=== PATIENT | male | born 1995 | race Caucasian/White ===

== ENCOUNTER 2021-03-23 22:00 | Emergency (ER) | payer BC, OTHER ==
[2021-03-23 22:06] VITALS: BP 120/75; PULSE 87; RESP 20; TEMP 98.1
[2021-03-23] MEDS ORDERED: IBUPROFEN 600 MG TAB PO STA (22:33)
--- NOTE | 2021-03-23 22:46 | XR ---
EXAMINATION TYPE: XR ankle complete RT DATE OF EXAM: 03/23/2021 COMPARISON: 04/25/2016 HISTORY: Ankle pain TECHNIQUE: 3 views FINDINGS: Ankle mortise is anatomic. There is soft tissue swelling over the lateral malleolus. I see no fracture. IMPRESSION: Soft tissue swelling. No fracture.
--- NOTE | 2021-03-23 22:52 | ED ---
Lower Extremity Injury HPI - General Chief Complaint: Extremity Injury, Lower Stated Complaint: Right ankle pain Time Seen by Provider: 03/23/21 22:21 Source: patient Mode of arrival: wheelchair Limitations: no limitations - History of Present Illness Initial Comments: Patient is a 25-year-old male presenting to the emergency Department with complaints of right ankle pain happened few hours prior to arrival. Patient states he was walking down his deck steps when he missed the last one, and twisted his right ankle. He states is painful on the lateral aspect. He is able to bear just little weight. He denies any pain of his right knee, he has no other injuries from this twice. He has no further complaints. He denies any previous injuries to his right ankle or foot. - Related Data Previous Rx's Medication Instructions Recorded Ibuprofen [Motrin] 600 mg PO Q6HR PRN #40 day 04/25/16 Allergies Allergy/AdvReac Type Severity Reaction Status Date / Time No Known Allergies Allergy Verified 04/25/16 13:37 Review of Systems ROS Statement: Those systems with pertinent positive or pertinent negative responses have been documented in the HPI. ROS Other: All systems not noted in ROS Statement are negative. Past Medical History Past Medical History: No Reported History History of Any Multi-Drug Resistant Organisms: None Reported Past Surgical History: Ear Surgery Past Psychological History: No Psychological Hx Reported Smoking Status: Never smoker Past Alcohol Use History: None Reported Past Drug Use History: None Reported General Exam - General Exam Comments Initial Comments: GENERAL: Patient is well-developed and well-nourished. Patient is nontoxic and in no acute distress. HEAD: Atraumatic, normocephalic. EYES: Pupils equal round and reactive to light, extraocular movements intact, sclera anicteric, conjunctiva are normal. Eyelids were unremarkable. ENT: TMs normal, nares patent, oropharynx clear without exudates. Moist mucous membranes. NECK: Normal range of motion, supple without lymphadenopathy or JVD. LUNGS: Unlabored respirations. Breath sounds clear to auscultation bilaterally and equal. No wheezes rales or rhonchi. HEART: Regular rate and rhythm without murmurs, rubs or gallops. ABDOMEN: Soft, nontender, normoactive bowel sounds. No guarding, no rebound. No masses appreciated. : Deferred MUSCULOSKELETAL: Patient has pain with palpation of the right lateral malleolus, he does have some mild swelling present, no pain of the right foot, lower leg or right knee. He is neurovascular intact. No clubbing or cyanosis. NEUROLOGICAL: Patient is alert and oriented x 3. Motor and sensory are also intact. Cranial nerves II through XII grossly intact. Symmetrical smile. Normal speech, normal gait. PSYCH: Normal mood, normal affect. SKIN: Warm, Dry, normal turgor, no rashes or lesions noted. Limitations: no limitations Course Vital Signs 03/23/21 22:03 Temperature 98.1 F Pulse Rate 87 Respiratory 20 Rate Blood Pressure 120/75 O2 Sat by Pulse 96 Oximetry Procedures - Orthopedic Splinting/Casting Injury #1 Side: right Lower Extremity Injury Location: ankle Lower Extremity Immobilizer: stirrup splint, Kurt wrap Medical Decision Making - Medical Decision Making patient is a 25-year-old male here with right ankle pain after he twisted it stepping off his deck. X-rays reveal no acute fracture dislocations. I did give him an air cast splint and put an Kurt wrap on him. Recommended ice, Motrin for discomfort. He can follow up with his doctor if symptoms persist. He is agreeable to this and he is stable for discharge. Disposition Clinical Impression: Right ankle sprain Disposition: HOME SELF-CARE Condition: Stable Instructions (If sedation given, give patient instructions): Ankle Sprain (ED) Additional Instructions: Please return to the Emergency Department if symptoms worsen or any other concerns. May use air cast for support. Recommended ice to the area, ibuprofen for any discomfort. If symptoms persist without improvement after 1-2 weeks, follow up with orthope dics. Is patient prescribed a controlled substance at d/c from ED?: No Referrals: Beto Haddad MD [Primary Care Provider] - 1-2 days Mikel Robles MD [STAFF PHYSICIAN] - 1-2 days Time of Disposition: 22:52
== END 2021-03-23 23:19 | disposition home or self-care (01) ==
LOC: EC 22:00
DX: S93.401A Sprain of unspecified ligament of right ankle, initial encounter (principal); X50.0XXA Overexertion from strenuous movement or load, initial encounter
CPT/HCPCS: 99283

== ENCOUNTER 2022-01-06 04:37 | Emergency (ER) | payer BC, OTHER ==
[2022-01-06] MEDS ORDERED: SODIUM CHLORIDE 0.9% 1,000 ML IV STA (04:44)
--- NOTE | 2022-01-06 04:45 | ED ---
Chest Pain HPI - General Stated Complaint: Chest Pain Time Seen by Provider: 01/06/22 04:44 Source: RN notes reviewed, old records reviewed Limitations: no limitations - History of Present Illness Initial Comments: This is a 26-year-old male to the emergency department for evaluation patient is chest pain significant chest pain left-sided chest pain radiating to his back severe. Patient did have syncopal event at work prior to arrival. Very sweaty very diaphoretic. very weak went to his knee positive nausea following vomiting. Severe shortness of breath no medical history takes no medications no other new complaints MD Complaint: chest pain -: minutes(s) Onset: during rest, during exertion Pain Location: substernal, left chest Pain Radiation: LUE Severity: moderate Severity scale (1-10): 6 Quality: aching Consistency: constant Improves With: nothing Worsens With: nothing Anginal Symptoms: nausea, dyspnea Other Symptoms: palpitations Treatments Prior to Arrival: none - Related Data Previous Rx's Medication Instructions Recorded Ibuprofen [Motrin] 600 mg PO Q6HR PRN #40 day 04/25/16 Allergies Allergy/AdvReac Type Severity Reaction Status Date / Time No Known Allergies Allergy Verified 01/06/22 05:03 Review of Systems ROS Statement: Those systems with pertinent positive or pertinent negative responses have been documented in the HPI. ROS Other: All systems not noted in ROS Statement are negative. EKG Findings - EKG Comments: EKG Findings:: EKG is sinus bradycardia [place] 136 QRS 97 QTc 4:15 Past Medical History Past Medical History: No Reported History History of Any Multi-Drug Resistant Organisms: None Reported Past Surgical History: Ear Surgery Past Psychological History: No Psychological Hx Reported Smoking Status: Never smoker Past Alcohol Use History: None Reported Past Drug Use History: None Reported General Exam General appearance: alert, in no apparent distress, anxious Head exam: Present: atraumatic, normocephalic, normal inspection Eye exam: Present: normal appearance, PERRL, EOMI. Absent: scleral icterus, conjunctival injection, periorbital swelling ENT exam: Present: normal exam, mucous membranes moist Neck exam: Present: normal inspection. Absent: tenderness, meningismus, lymphadenopathy Respiratory exam: Present: normal lung sounds bilaterally. Absent: respiratory distress, wheezes, rales, rhonchi, stridor Cardiovascular Exam: Present: regular rate, normal rhythm, normal heart sounds. Absent: systolic murmur, diastolic murmur, rubs, gallop, clicks GI/Abdominal exam: Present: soft, normal bowel sounds. Absent: distended, tenderness, guarding, rebound, rigid Extremities exam: Present: normal inspection, full ROM, normal capillary refill. Absent: tenderness, pedal edema, joint swelling, calf tenderness Back exam: Present: normal inspection Neurological exam: Present: alert, oriented X3, CN II-XII intact Psychiatric exam: Present: normal affect, normal mood Skin exam: Present: warm, dry, intact, normal color. Absent: rash Course Vital Signs 01/06/22 01/06/22 01/06/22 04:56 06:03 07:54 Temperature 97.9 F Pulse Rate 74 81 82 Respiratory 18 18 17 Rate Blood Pressure 127/78 128/79 126/78 O2 Sat by Pulse 98 100 98 Oximetry - Reevaluation(s) Reevaluation #1: 01/06/22 Medical record is reviewed Reevaluation #2: 01/06/22 Patient informed of results and questions answered Reevaluation #3: 01/06/22 Patient feels okay for discharge Chest Pain MDM - MDM 26 male to the emergency department for evaluation of chest pain severe with syncopal event. CT negative for significant acute disease and including PE. EKG troponin negative patient can be discharged home Disposition Clinical Impression: Chest pain, Atypical chest pain, Near syncope Disposition: HOME SELF-CARE Condition: Good Instructions (If sedation given, give patient instructions): Chest Pain (ED), Near Syncope (ED) Is patient prescribed a controlled substance at d/c from ED?: No Referrals: Beto Haddad MD [Primary Care Provider] - 1-2 days Time of Disposition: 06:45
[2022-01-06 05:03] VITALS: TEMP 97.9
[2022-01-06 05:32] LABS: Basophils # (A) 0.1 k/uL (0-0.2); Basophils % (A) 1 %; Eosinophils # (A) 0.1 k/uL (0-0.7); Eosinophils % (A) 1 %; HCT 46.6 % (39.0-53.0); HGB 15.6 gm/dL (13.0-17.5); Lymphocytes # (A) 1.5 k/uL (1.0-4.8); Lymphocytes % (A) 19 %; MCH 28.1 pg (25.0-35.0); MCHC 33.4 g/dL (31.0-37.0); MCV 84.1 fL (80.0-100.0); Monocytes # (A) 0.4 k/uL (0-1.0); Monocytes % (A) 5 %; Neutrophils # (A) 5.7 k/uL (1.3-7.7); Neutrophils % (A) 72 %; Platelet Count 241 k/uL (150-450); RBC 5.54 m/uL (4.30-5.90); RDW 12.3 % (11.5-15.5); WBC 7.8 k/uL (3.8-10.6)
--- NOTE | 2022-01-06 05:32 | XR ---
EXAMINATION TYPE: XR chest 1V portable DATE OF EXAM: 01/06/2022 COMPARISON: NONE HISTORY: Chest pain. TECHNIQUE: Single AP portable frontal upright view of the chest is obtained. FINDINGS: Overlying EKG leads are present. There is no focal air space opacity, pleural effusion, or pneumothorax seen. The cardiac silhouette size is within normal limits. The osseous structures are intact. IMPRESSION: No acute process.
[2022-01-06 05:44] LABS: ALT 29 U/L (4-49); AST 40 U/L (17-59); African American GFR (CKD) >90 (>60 ml/min/1.73 sqM); Albumin 4.7 g/dL (3.5-5.0); Alkaline Phosphatase 79 U/L (38-126); Anion Gap 7 mmol/L; Blood Urea Nitrogen 20 mg/dL (9-20); Calcium 9.2 mg/dL (8.4-10.2); Carbon Dioxide 27 mmol/L (22-30); Chloride 102 mmol/L (98-107); Glucose 104 mg/dL (74-99); Lipase 81 U/L (23-300); Magnesium 1.9 mg/dL (1.6-2.3); Non-African American GFR(CKD) >90 (>60 ml/min/1.73 sqM); Sodium 136 mmol/L (137-145); Total Bilirubin 1.1 mg/dL (0.2-1.3); Total Protein 7.1 g/dL (6.3-8.2)
[2022-01-06 06:18] LABS: Potassium 4.5 mmol/L (3.5-5.1)
--- NOTE | 2022-01-06 06:20 | CT ---
EXAMINATION TYPE: CT angio chest DATE OF EXAM: 01/06/2022 COMPARISON: Chest x-ray earlier today. HISTORY: chest pain CT DLP: 810.8 mGycm. Automated Exposure Control for Dose Reduction was Utilized. CONTRAST: CTA scan of the thorax is performed with IV Contrast, patient injected with 83 mL of Isovue 370, pulm onary embolism protocol. MIP Images are created on CT scanner and reviewed. FINDINGS: LUNGS: The lungs are grossly clear, there is no concerning parenchymal mass or nodule identified. T here is no pleural effusion or pneumothorax seen. The tracheobronchial tree is patent. MEDIASTINUM: There is suboptimal study with denser contrast in the aorta versus pulmonary arteries. There is no convincing CT evidence for acute pulmonary embolism. No thoracic aortic dissection or ane urysm. There are no greater than 1 cm hilar or mediastinal lymph nodes. No cardiomegaly or pericard ial effusion is seen. OTHER: No additional significant abnormality is seen. IMPRESSION: No CT evidence for acute pulmonary embolism. No suspicious acute pulmonary process.
[2022-01-06 06:35] LABS: Partial Thromboplastin Time 25.2 sec (22.0-30.0)
[2022-01-06 07:56] VITALS: BP 126/78; PULSE 82; RESP 17
== END 2022-01-06 07:56 | disposition home or self-care (01) ==
LOC: EC 04:37
DX: R07.89 Other chest pain (principal); R55 Syncope and collapse
CPT/HCPCS: 36415; 93005; 85379; 83880; 80053; 83690; 83735; 84484; 85025; 85610; 85730; 71045; 71275; 99285; 96360; Q9967

== ENCOUNTER 2023-12-22 01:17 | Emergency (ER) | payer BC ==
[2023-12-22 01:28] VITALS: RESP 18; TEMP 98.3
--- NOTE | 2023-12-22 02:07 | ED ---
Chest Pain HPI - General Chief Complaint: Chest Pain Stated Complaint: chest pain Time Seen by Provider: 12/22/23 01:28 Source: EMS, RN notes reviewed Mode of arrival: EMS - History of Present Illness Initial Comments: 28-year-old male with no significant past medical history presenting to the ED with a chief complaint of chest pain. Patient reports over the weekend developed some pain on the left side of his chest. Pain does not radiate. No known associated alleviating or aggravating factors. States pain seems to worsen with work. 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 Also notes over the past few days has developed some headache and dizziness. Patient does report history of headaches. Reports headache is a 6 out of 10 in severity. No fever or chills. No abdominal pain. No change in bowel or bladder habits. No other complaints at this time. - Related Data Previous Rx's Medication Instructions Recorded Ibuprofen [Motrin] 600 mg PO Q6HR PRN #40 day 04/25/16 Allergies Allergy/AdvReac Type Severity Reaction Status Date / Time No Known Allergies Allergy Verified 12/22/23 01:26 Review of Systems ROS Statement: Those systems with pertinent positive or pertinent negative responses have been documented in the HPI. ROS Other: All systems not noted in ROS Statement are negative. Past Medical History Past Medical History: No Reported History History of Any Multi-Drug Resistant Organisms: None Reported Past Surgical History: Ear Surgery Past Psychological History: No Psychological Hx Reported Smoking Status: Never smoker Past Alcohol Use History: Rare Past Drug Use History: None Reported General Exam General appearance: alert, in no apparent distress Eye exam: Present: normal appearance Neck exam: Present: normal inspection. Absent: meningismus Respiratory exam: Present: normal lung sounds bilaterally Cardiovascular Exam: Present: regular rate. Absent: systolic murmur, diastolic murmur, rubs, gallop GI/Abdominal exam: Present: soft, normal bowel sounds. Absent: distended, tenderness, guarding, rebound, rigid Neurological exam: Present: alert, oriented X3 Skin exam: Present: warm, dry Course Vital Signs 12/22/23 12/22/23 12/22/23 01:22 01:50 02:00 Temperature 98.3 F Pulse Rate 75 71 73 Respiratory 18 18 18 Rate Blood Pressure 137/96 125/77 125/77 O2 Sat by Pulse 97 95 96 Oximetry 12/22/23 12/22/23 12/22/23 02:30 03:00 03:30 Temperature Pulse Rate 73 69 71 Respiratory 18 18 18 Rate Blood Pressure 128/79 120/76 121/76 O2 Sat by Pulse 97 98 98 Oximetry 12/22/23 04:00 Temperature Pulse Rate 79 Respiratory 18 Rate Blood Pressure 124/71 O2 Sat by Pulse 97 Oximetry Chest Pain MDM - MDM Was pt. sent in by a medical professional or institution (, [facility]RICE, CONFIGURATION MANAGEMENT ADVISOR, urgent care, hospital, or fci...) When possible be specific @ -No Did you speak to anyone other than the patient for history (EMS, parent, family, police, friend...)? What history was obtained from this source @ -No Did you review nursing and triage notes (agree or disagree)? Why? @ -I reviewed and agree with nursing and triage notes Were old charts reviewed (outside hosp., previous admission, EMS record, old EKG, old radiological studies, urgent care reports/EKG's, fci records)? Report findings @ -No old charts were reviewed Differential Diagnosis (chest pain, altered mental status, abdominal pain women, abdominal pain men, vaginal bleeding, weakness, fever, dyspnea, syncope, headache, dizziness, GI bleed, back pain, seizure, CVA, palpatations, mental health, musculoskeletal)? @ -Differential Chest Pain: Stable Angina, Unstable Angina, STEMI, NSTEMI Aortic Dissection, Pneumothorax, Musculoskeletal, Esophageal Spasm GERD, Cholecystitis, Pancreatitis, Zoster, this is not meant to be an all-inclusive list. EKG interpreted by me (3pts min.). @ -EKG interpreted by me showing a sinus rhythm at [address] or T wave changes. Incomplete right bundle branch block noted. AL 140, QRS 94, QT/QTc 380/413. X-rays interpreted by me (1pt min.). @ -Chest x-ray interpreted me which revealed no evidence of acute finding. CT interpreted by me (1pt min.). @ -None done U/S interpreted by me (1pt. min.). @ -None done What testing was considered but not performed or refused? (CT, X-rays, U/S, labs)? Why? @ -None What meds were considered but not given or refused? Why? @ -None Did you discuss the management of the patient with other professionals (professionals i.e. , PA, CONFIGURATION MANAGEMENT ADVISOR, lab, RT, psych nurse, bilingual social worker, test automation architect, teacher, correction officer, continuous pillowcase cutter)? Give summary @ -No Was smoking cessation discussed for >3mins.? @ -No Was critical care preformed (if so, how long)? @ -No Were there social determinants of health that impacted care today? How? (Homelessness, low income, unemployed, alcoholism, drug addiction, transportation, low edu. Level, literacy, decrease access to med. care, senior living, rehab)? @ -No Was there de-escalation of care discussed even if they declined (Discuss DNR or withdrawal of care, Hospice)? DNR status @ -No What co-morbidities impacted this encounter? (DM, HTN, Smoking, COPD, CAD, Cancer, CVA, ARF, Chemo, Hep., AIDS, mental health diagnosis, sleep apnea, morbid obesity)? @ -None Was patient admitted / discharged? Hospital course, mention meds given and route, prescriptions, significant lab abnormalities, going to OR and other pertinent info. @ -Discharge 28-year-old male presents to the ED with complaints of chest pain, headache, dizziness for the last few days. On exam neurologic exam including cranial nerve exam 2-12 and finger-nose, [id number], rapid alternating movements unremarkable. Laboratory studies reviewed. Labs unremarkable. Troponin undetectable. Chest x-ray revealed no evidence of acute finding. EKG showed a normal sinus rhythm without acute ST-T wave changes. Patient discharged home in stable condition instructions follow-up with PCP. Discussed return precautions with patient who verbalized agreement. Undiagnosed new problem with uncertain prognosis? @ -No Drug Therapy requiring intensive monitoring for toxicity (Heparin, Nitro, Insulin, Cardizem)? @ -No Were any procedures done? @ -No Diagnosis/symptom? @ -Chest pain Acute, or Chronic, or Acute on Chronic? @ -Acute Uncomplicated (without systemic symptoms) or Complicated (systemic symptoms)? @ -Uncomplicated Side effects of treatment? @ -No Exacerbation, Progression, or Severe Exacerbation? @ -No Poses a threat to life or bodily function? How? (Chest pain, [place], [place], pneumonia, PE, COPD, DKA, ARF, appy, cholecystitis, CVA, Diverticulitis, Homicidal, Suicidal, threat to staff... and all critical care pts) @ -Unlikely Disposition Clinical Impression: Chest pain Disposition: HOME SELF-CARE Condition: Good Instructions (If sedation given, give patient instructions): Chest Pain (ED) Additional Instructions: Please return to the Emergency Department if symptoms worsen or any other concerns. Take [id number] medications as needed for symptoms. Please follow-up with your primary care provider. Is patient prescribed a controlled substance at d/c from ED?: No Referrals: Beto Haddad MD [Primary Care Provider] - 1-2 days Time of Disposition: 04:43
[2023-12-22 02:22] LABS: ALT 56 U/L (4-49); AST 37 U/L (17-59); African American GFR (CKD) >90 (>60 ml/min/1.73 sqM); Albumin 4.9 g/dL (3.5-5.0); Alkaline Phosphatase 83 U/L (38-126); Anion Gap 11 mmol/L; Blood Urea Nitrogen 17 mg/dL (9-20); Calcium 9.8 mg/dL (8.4-10.2); Carbon Dioxide 21 mmol/L (22-30); Chloride 104 mmol/L (98-107); Glucose 93 mg/dL (74-99); Magnesium 1.9 mg/dL (1.6-2.3); Non-African American GFR(CKD) >90 (>60 ml/min/1.73 sqM); Potassium 4.3 mmol/L (3.5-5.1); Sodium 136 mmol/L (137-145); Total Bilirubin 0.8 mg/dL (0.2-1.3); Total Protein 7.4 g/dL (6.3-8.2)
[2023-12-22 02:45] LABS: Partial Thromboplastin Time 24.6 sec (22.0-30.0); Prothrombin Time 11.2 sec (10.0-12.5)
[2023-12-22 02:54] LABS: Basophils % (A) 0 %; Eosinophils # (A) 0.1 k/uL (0-0.7); Eosinophils % (A) 1 %; HCT 49.3 % (39.0-53.0); HGB 17.6 gm/dL (13.0-17.5); Hyperchromasia Slight; Lymphocytes # (A) 1.6 k/uL (1.0-4.8); Lymphocytes % (A) 13 %; MCH 29.8 pg (25.0-35.0); MCHC 35.7 g/dL (31.0-37.0); MCV 83.4 fL (80.0-100.0); Monocytes # (A) 0.5 k/uL (0-1.0); Monocytes % (A) 4 %; Neutrophils % (A) 81 %; Platelet Count 243 k/uL (150-450); RBC 5.91 m/uL (4.30-5.90); RDW 12.9 % (11.5-15.5); WBC 12.3 k/uL (3.8-10.6)
[2023-12-22 04:42] VITALS: PULSE 79
[2023-12-22 05:29] VITALS: BP 122/88
--- NOTE | 2023-12-22 07:26 | XR ---
EXAMINATION TYPE: XR chest 2V DATE OF EXAM: 12/22/2023 COMPARISON: 01/06/2022 HISTORY: 28-year-old male with chest pain TECHNIQUE: PA and lateral views FINDINGS: The cardiomediastinal silhouette, aorta, and pulmonary vasculature are within normal limits. Lungs an d pleural spaces are clear. IMPRESSION: No acute cardiopulmonary process.
== END 2023-12-22 04:54 | disposition home or self-care (01) ==
LOC: EC 01:17
DX: I45.10 Unspecified right bundle-branch block (principal)
CPT/HCPCS: 36415; 71046; 80053; 83735; 84484; 85025; 85610; 85730; 87636; 93005; 99285

== ENCOUNTER → 2024-03-06 | Outpatient (CLI) | payer BC ==
[2024-03-06 13:26] VITALS: BP 118/87; PULSE 85; RESP 18; TEMP 98.1
--- NOTE | 2024-03-06 13:58 | P.SLEEP ---
History of Present Illness DATE: 03/06/2024 CONSULTATION/NEW PATIENT EVALUATION HISTORY OF PRESENT ILLNESS/SLEEP-WAKE EVALUATION: 28-year-old gentleman had b een evaluated in the sleep center for possible obstructive sleep apnea hypopnea syndrome. 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 FALLING ASLEEP: Patient has difficulties with falling asleep, has TV set in bedroom. DURING SLEEP: Patient has loud snoring and witnessed episodes of stop breathing during the sleep. Patient wakes up from sleep up to 3 times with 1 episode of nocturia. Positive history of sleep talking. Positive history of grinding teeth, awakenings with dry mouth, gasping for air and sweating no history of hypnogogical hallucinations, sleep paralysis, or cataplexy. DURING THE DAY/WAKE STATE: After sleep patient wake up tired, has problems with memory and concentration. [place] sleepiness scale is 8. Patient may take 1-2 naps a day around 3 or 4 PM. PAST MEDICAL HISTORY: Recently episodes of chest pain. PAST SURGICAL HISTORY: None. MEDICATIONS: None. SOCIAL HISTORY: Please see below. FAMILY HISTORY: Hypertension, snoring, heart problems, headaches, diabetes, other please see below. REVIEW OF SYSTEMS: Snoring, multiple awakenings from sleep. No fevers. No double vision. No recent chest pain. No shortness of breath. No abdominal pain. No bleeding episodes. No blood in urine. No seizure episodes. PHYSICAL EXAMINATION: GENERAL: A pleasant patient without any distress. VITAL SIGNS: Please see below, weight 240.4 pounds, BMI 34.4. HEENT: PERRLA, EOMI. Evaluation of oropharynx showed tongue protrudes midline, low position of soft palate Mallampati 3. NECK: Supple. No JVD. Thyroid is not palpable. 16.5 inches in circumference. LUNGS: Clear to percussion and to auscultation. Good air exchange. No wheezing or rhonchi. HEART: S1, S2 regular. No murmurs, gallops or rubs. ABDOMEN: Soft and nontender. Bowel sounds are present. No organomegaly appreciated. EXTREMITIES: No clubbing or cyanosis. TRAVELING CLERK: Awake, alert, and oriented x3. Cranial nerves 2 to 7 intact. There is no fasciculation or atrophy noted. No focal deficits observed. ASSESSMENT: 1. Loud snoring, witnessed episodes of stop breathing during the sleep, low position of soft palate Mallampati 3, multiple awakenings from sleep with episodes of gasping for air. Obstructive sleep apnea hypopnea syndrome. 2. Obesity, BMI 34.4. 3. Episodes of chest pain. Evaluation by manager psychiatry was negative according to patient. 4. 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 PLAN: 1. Home sleep apnea test for evaluation of patient's breathing during sleep. 2. Following plan after reading sleep study. 3. Preferable position during sleep on the side. 4. No driving if patient feels any sleepiness. Patient is aware of civil and criminal liability for unsafe driving. 5. Sleep hygiene with regular sleep time for at least 7.5-8 hours. 6. Watching and losing weight. Thank you very much for referring this patient for consultation. Sincerely, Derek Davies MD, PhD, FAASM. Diplomat of [place] [employer], Sleep Medicine Board by [place] [employer] [place] [employer] Post Acute Care Nurse [facility] [place] cc: Beto Haddad MD Past Medical History Past Medical History: No Reported History Additional Past Medical History / Comment(s): hEADACHES, - WAKE UP WITH HEADACHES SOMETIMES IN THE AM, SNORING. History of Any Multi-Drug Resistant Organisms: None Reported Past Surgical History: Ear Surgery Additional Past Surgical History / Comment(s): PERFORATED EAR DRUM - ?13 YEARS OLD, TUBE INSERTED RIGHT EAR . Past Psychological History: No Psychological Hx Reported Smoking Status: Never smoker Past Alcohol Use History: Rare Past Drug Use History: None Reported - Past Family History Mother Family Medical History: GERD/Reflux, Hypertension, Myocardial Infarction ([place]), Pneumonia Additional Family Medical History / Comment(s): [place] ( [place]), CARIAC AORTIC ANEURYSM, ARTHRITIS, SINUS HEADACHES, SNORING, HEADACHES Father Family Medical History: Hypertension Additional Family Medical History / Comment(s): SNORING, Medications and Allergies Home Medications Medication Instructions Recorded Confirmed Type Ibuprofen [Motrin] 600 mg PO Q6HR PRN #40 day 04/25/16 03/23/21 Rx Allergies Allergy/AdvReac Type Severity Reaction Status Date / Time No Known Allergies Allergy Verified 12/22/23 01:26 Physical Exam Vitals: Vital Signs Temp Pulse Resp BP Pulse Ox 07/29/24 13:25 98.1 F 85 18 118/87 98 Intake and Output 03/05/24 03/06/24 03/06/24 22:59 06:59 14:59 Other: Weight 108.976 kg Sleep Note - Sleep Data ESS Total: 8 - Sleep Note Sleep Note: Temperature: 98.1 F Pulse Rate: 85 Respiratory Rate: 18 Blood Pressure: 118/87 SpO2: 98 Height: 5 ft 10 in Weight: 108.976 kg BMI: Neck Circumference: 16.5
== END ==
LOC: 3 N SLEEP 13:10
PROVIDERS: ATTEND Internal Medicine
DX: G47.33 Obstructive sleep apnea (adult) (pediatric) (principal); E66.9 Obesity, unspecified; R07.89 Other chest pain; Z68.34 Body mass index [BMI] 34.0-34.9, adult
CPT/HCPCS: 99211

== ENCOUNTER → 2024-03-31 | Outpatient (CLI) | payer BC ==
--- NOTE | 2024-04-06 16:17 | P.PCN ---
Description of Procedure: CLINICAL: A home sleep apnea test has been done for confirmation of possible obstructive sleep apnea-hypopnea syndrome. DESCRIPTION OF PROCEDURE: RESULTS: Recording time was 7 hours 38 minutes. Evaluation time was 7 hours 27 minutes. Evaluation time is sufficient for making conclusion about results of the test. Raw data of sleep recording has been reviewed and is adequate. Respiratory channel showed 2 apneas and 40 hypopneas. Apnea-hypopnea index was 5.6 per hour. Pulse rate in the range between minimum 49, maximum 101, average 63 by computer calculation. Lowest desaturation was 91%. IMPRESSION: 1. Mild Obstructive Sleep Apnea Hypopnea Syndrome, although home sleep apnea test may underestimate severity of obstructive sleep apnea hypopnea syndrome. 2. Episodes of chest pain. 3. Sleepiness, patient takes up to 2 naps during the day. Please see other impressions from consultation. PLAN: 1. I will see patient for follow-up visit to discuss results of the test and recommendations. 2. Watching and losing weight. 3. Sleep hygiene with regular time in bed for at least 8 hours. 4. No driving if feeling any sleepiness. Thank you very much for allowing me to participate in the management of your patient. Sincerely, Derek Davies MD, PhD, FAASM Diplomat of [place] [employer] Sleep Medicine Board of [place] [employer] Production Shift Supervisor of [facility]
== END ==
LOC: 3 N SLEEP 13:00
PROVIDERS: ATTEND Internal Medicine

== ENCOUNTER → 2024-12-06 | Outpatient (CLI) | payer BC ==
[2024-12-06 15:55] VITALS: BP 123/82; PULSE 80; RESP 16; TEMP 98.2
--- NOTE | 2024-12-06 16:32 | P.PROGSL ---
Subjective DATE: 12/06/2024 FOLLOW UP VISIT. Patient with obstructive sleep apnea hypopnea syndrome return to sleep center for follow-up visit. Recently patient had sleep study was positive for obstructive sleep apnea hypopnea syndrome. I explained results of home sleep apnea test to the patient in details. Patient has mild obstructive sleep apnea, but has symptoms of excessive daytime sleepiness. Information from previous visit have been reviewed. Today's first visit after patient started to use CPAP equipment. Patient is using PAP equipment every night for the whole night. Patient sleeps better with CPAP and feels better during the day. The patient does not have significant problems with the mask, PAP unit and humidification. [place] sleepiness scale is slightly increased to 11. I checked information from PAP unit. PAP unit pressure 5-13, average 7.3 cm H2O. Usage is 100% and 70% for more then 4 hours, average 5 hours per night. Leak is in great range 4.8 l/m. Apnea Hypopnea Index is 1.2, which is normal. MEDICATIONS: None During physical exam: GENERAL: A pleasant patient without any distress. VITAL SIGNS: Please see below, weight 253 pounds. HEENT: PERRLA, EOMI.low position of soft palate, [place] 3. NECK: Supple. No JVD. LUNGS: Clear to percussion and to auscultation. Good air exchange. No wheezing or rhonchi. HEART: S1, S2 regular. ABDOMEN: Soft and nontender.[] EXTREMITIES: No clubbing or cyanosis. EXTRACT OPERATOR: Awake, alert, and oriented x3. No focal deficit. Impressions: 1. Obstructive sleep apnea-hypopnea syndrome. Patient demonstrated great compliance with treatment, benefiting from treatment. Sleepiness improved on CPAP. 2. Obesity. 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 4. Episodes of chest pain in the past with negative evaluation by child care lead teacher according to patient. Plan: 1. Continue using PAP equipment every night for the whole night. 2. To change air filter at least 1-2 times per month. 3. PAP unit should stay lower then position of the head. 4. Advised patient to remove all remaining water from humidifier canister daily and make it dry after each usage. Refill canister with fresh distilled water before each usage. 5. Sleep hygiene with regular time in bed for at least 8 hours. 6. Precautions related to driving. No driving if feel any sleepiness. 7. I will maintain prescription for PAP supplies including mask, tube, filters. 8. Follow up visit in 8 months or earlier if patient has any problems. 9. Watching and losing weight. Thank you very much for allowing me to participate in the management of your patient. Derek Davies MD, PhD, FAASM. Diplomat of [employer] [place] [employer], Sleep Medicine Board by [employer] [place] [employer] Crime Victim Specialist of [facility] [place] Objective - Vital Signs Vital Signs: Vital Signs Temp 98.2 F 12/06/24 15:54 Pulse 80 12/06/24 15:54 Resp 16 12/06/24 15:54 BP 123/82 12/06/24 15:54 Pulse Ox 96 12/06/24 15:54 FiO2 Home Medications: Home Medications Medication Instructions Recorded Confirmed Type Ibuprofen [Motrin] 600 mg PO Q6HR PRN #40 day 04/25/16 03/23/21 Rx
== END ==
LOC: 3 N SLEEP 15:47
PROVIDERS: ATTEND Internal Medicine
DX: G47.33 Obstructive sleep apnea (adult) (pediatric) (principal); E66.9 Obesity, unspecified; R07.9 Chest pain, unspecified; Z99.89 Dependence on other enabling machines and devices
CPT/HCPCS: 99212